=== PATIENT | female | born 1970 | race African-American/Black ===

== ENCOUNTER 2016-07-16 05:24 | Emergency (ER) | payer OTHER ==
[~2016-07-16] VITALS: Ht 172.7 cm; Wt 81.6 kg
[~2016-07-16 05:24] MED LIST: BACTRIM DS 8001 TA1 PO; CIPROFLOXACIN500 MG PO; COMPAZINE10 MG PO; DAYPRO600 M1 PO; MOTRIN800 MG PO; NKHM; PYRIDIUM200 MG PO; ROBAXIN750 MG PO; TRAMADOL HCL50 MG PO; TRIMOX500 MG PO; ULTRAM50 MG PO
[2016-07-16 05:31] VITALS: BP 130/72
[2016-07-16 05:56] LABS: BILIRUBIN NEGATIVE (NEGATIVE); BLOOD TRACE-INTACT (NEGATIVE); CLARITY CLEAR (CLEAR); COLOR YELLOW (YELLOW); GLUCOSE NEGATIVE (NEGATIVE); KETONE NEGATIVE (NEGATIVE); LEUKO ESTERASE NEGATIVE (NEGATIVE); NITRITE NEGATIVE (NEGATIVE); PH 5.5 (5.0-9.0); PROTEIN NEGATIVE (NEGATIVE); SPECIFIC GRAVITY >= 1.030 (1.005-1.030)
[2016-07-16 06:04] LABS: BACTERIA 2+
[2016-07-16 06:05] LABS: RBC 0-2 rbc/hpf (0-2); URINE REFLEX COMMENT YES (NO)
[2016-07-16] MEDS ORDERED: PHENERGAN25 MG R (06:34)
== END 2016-07-16 06:40 | disposition home or self-care (01) ==
LOC: ED 05:24
PROVIDERS: Emergency Medicine
DX: K52.9 Noninfective gastroenteritis and colitis, unspecified (principal); F17.200 Nicotine dependence, unspecified, uncomplicated; Z98.890 Other specified postprocedural states; Z88.6 Allergy status to analgesic agent

== ENCOUNTER 2017-02-27 13:39 | Emergency (ER) | payer SELFPAY ==
[~2017-02-27] VITALS: Ht 175.2 cm; Wt 72.6 kg
[~2017-02-27 13:39] MED LIST changes: +PHENERGAN25 MG R
[2017-02-27 13:44] VITALS: BP 118/72
[2017-02-27 14:18] LABS: BASO % 0.7 % (0.0-1.0); EOS % 0.2 % (1.0-4.0); HEMATOCRIT 34.8 % (37.0-47.0); HEMOGLOBIN 11.5 g/dl (12.0-16.0); LYMPH # 1.2 10*3/uL (1.3-4.4); LYMPH % 21.7 % (27.0-41.0); MEAN CELL VOLUME 84.3 fl (81.0-99.0); MEAN CORPUSCULAR HGB 27.8 pg (27.0-31.0); MEAN PLATELET VOLUME 9.4 fl (9.6-12.3); MONO # 0.3 10*3/uL (0.1-1.0); MONO % 4.5 % (3.0-9.0); NEUT # 4.1 10*3/uL (2.3-7.9); NEUT % 72.5 % (47.0-73.0); PLATELET COUNT AUTOMATED 281 10*3/uL (130-400); RED BLOOD COUNT 4.13 10*6/uL (4.10-5.10); RED CELL DISTRI WIDTH 16.9 % (0-14.5); WHITE BLOOD COUNT 5.6 10*3/uL (4.8-10.8)
[2017-02-27 14:35] LABS: ALBUMIN 4.2 gm/dl (3.1-4.5); ALKALINE PHOSPHATASE 99 U/L (45-117); BUN 11 mg/dl (7-24); CHLORIDE 102 mmol/L (98-107); CREATININE 1.01 mg/dL (0.55-1.02); LIPASE 48 U/L (73-393); POTASSIUM 3.5 mmol/L (3.5-5.1); SGOT/AST 18 IU/L (3-35); SGPT/ALT 24 U/L (12-78); SODIUM 140 mmol/L (136-145); TOTAL PROTEIN 7.6 gm/dL (6.4-8.2)
[2017-02-27 15:53] LABS: BILIRUBIN NEGATIVE (NEGATIVE); BLOOD 2+ (NEGATIVE); CLARITY CLEAR (CLEAR); COLOR YELLOW (YELLOW); GLUCOSE NEGATIVE (NEGATIVE); KETONE 3+ (NEGATIVE); LEUKO ESTERASE NEGATIVE (NEGATIVE); NITRITE POSITIVE (NEGATIVE); PH 7.5 (5.0-9.0)
[2017-02-27 16:03] LABS: URINE AMPHETAMINES < 1000 (1000ng/ml); URINE BARBITURATES < 200 (200ng/ml); URINE BENZODIAZEPINES < 200 (200ng/ml); URINE CANNABINOIDS (THC) > 50 (50ng/ml); URINE COCAINE < 300 (300ng/ml); URINE METHADONE < 300 (300ng/ml); URINE OPIATES < 300 (300ng/ml)
[2017-02-27 16:06] LABS: URINE PHENCYCLIDINE < 25 (25ng/ml)
[2017-02-27 16:12] LABS: BACTERIA 4+
[2017-02-27] MEDS ORDERED: PYRIDIUM200 M1 PO (16:12)
[2017-02-27] MEDS ORDERED: ZOFRAN4 MG PO (16:12)
[2017-02-27] MEDS ORDERED: Bactrim DS PO (16:12)
== END 2017-02-27 16:30 | disposition home or self-care (01) ==
LOC: ED 13:39
PROVIDERS: Nurse Practitioner Family
DX: N39.0 Urinary tract infection, site not specified (principal); F17.200 Nicotine dependence, unspecified, uncomplicated; Z98.890 Other specified postprocedural states; Z88.6 Allergy status to analgesic agent

== ENCOUNTER → 2018-01-28 | Outpatient (CLI) | payer SELFPAY ==
[~2018-01-28] MED LIST changes: +Bactrim DS PO; +PYRIDIUM200 M1 PO; +VITAMIN D-32000 UNIT PO; +ZOFRAN4 MG PO; +Zofran4 MG SL
== END | disposition home or self-care (01) ==
LOC: RESCLI 01:20
DX: F41.0 Panic disorder [episodic paroxysmal anxiety] (principal); F17.200 Nicotine dependence, unspecified, uncomplicated; Z88.8 Allergy status to other drugs, medicaments and biological substances

== ENCOUNTER → 2018-02-09 | Outpatient (CLI) | payer SELFPAY | END | disposition home or self-care (01) | LOC: CP 10:14 | DX: F17.200 Nicotine dependence, unspecified, uncomplicated (principal) ==

== ENCOUNTER 2023-06-04 17:02 | Emergency (ER) | payer SELFPAY ==
[~2023-06-04] VITALS: Wt 79.4 kg
[2023-06-04 18:08] VITALS: BP 152/63
[2023-06-04] MEDS ORDERED: PENICILLIN VK500 MG PO (18:43)
== END 2023-06-04 18:57 | disposition home or self-care (01) ==
LOC: ED 17:02
DX: K08.89 Other specified disorders of teeth and supporting structures (principal); F12.10 Cannabis abuse, uncomplicated; F17.200 Nicotine dependence, unspecified, uncomplicated; Z88.6 Allergy status to analgesic agent; Z98.890 Other specified postprocedural states